=== PATIENT | male | born 1960 | race Hispanic/Latino ===

== ENCOUNTER 2021-07-14 07:43 | Day surgery (SDC) | payer MEDICARE ==
[2021-07-14 08:51] LABS: Basophils # (Auto) 0.1 K/mm3 (0.0-0.1); Basophils % (Auto) 1.1 % (0.0-1.8); Eosinophils # (Auto) 0.1 K/mm3 (0.0-0.4); Eosinophils % (Auto) 1.6 % (0.0-4.3); Hematocrit 43.5 % (35.5-45.6); Hemoglobin 14.5 gm/dl (11.8-15.2); Lymphocytes # (Auto) 1.7 K/mm3 (1.2-5.4); Mean Corpuscular HGB Conc 33 % (32-34); Mean Corpuscular Volume 87 fl (84-94); Monocytes # (Auto) 0.6 K/mm3 (0.0-0.8); Monocytes % (Auto) 7.5 % (0.0-7.3); Platelet Count 200 K/mm3 (140-440); Red Blood Count 5.03 M/mm3 (3.65-5.03); Red Cell Distribution Width 16.3 % (13.2-15.2)
[2021-07-14] MEDS ORDERED: SODIUM CHLORIDE 0.9% 500 ML 500 ML IV SCH (09:00)
[2021-07-14] MEDS ORDERED: ASPIRIN EC 325 MG TAB PO ONE (09:00)
[2021-07-14 09:03] LABS: BUN/Creatinine Ratio 19; Blood Urea Nitrogen 15 mg/dL (9-20); Calcium 9.3 mg/dL (8.4-10.2); Hemolysis Index 5
[2021-07-14 09:18] LABS: INR 0.87 (0.87-1.13)
[2021-07-14] MEDS ORDERED: HEPARIN/NS 5000 UNIT/500ML 1,000 ML IR ONE (10:26)
--- NOTE | 2021-07-14 10:26 | Electrocardiograph Report ---
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
[2021-07-14] MEDS ORDERED: NITROGLYCERIN SYRINGE 3 ML ONE (10:27)
[2021-07-14] MEDS: MIDAZOLAM 2 MG/2 ML INJ ONE ×2 (10:50→11:04)
[2021-07-14] MEDS: fentaNYL 100 MCG/2 ML INJ ONE ×2 (10:51→11:04)
[2021-07-14] MEDS: LIDOCAINE (2%) 20 MG/1 ML VIAL 20 ML MDV INFILTRATI ONE ×2 (10:52→11:06)
[2021-07-14] MEDS: HEPARIN 10,000 UNITS/10 ML VIAL ONE ×2 (10:52→11:07)
[2021-07-14] MEDS: VERAPAMIL 5 MG/2 ML INJ ONE ×2 (10:52→11:07)
[2021-07-14] MEDS ORDERED: CLOPIDOGREL 300 MG TAB ONE (11:15)
[2021-07-14] MEDS ORDERED: ALUM-MAG HYDROXIDE-SIMETHICONE 200-200-20MG/5ML ORAL LIQD 30 ML ONE (11:15)
--- NOTE | 2021-07-14 11:34 | Short Stay Summary ---
Short Stay Documentation Date of service: 07/14/21 - History H&P: obtained from office - Allergies and Medications Current Medications: Allergies No Known Allergies Allergy (Verified 07/14/21 08:15) Home Medications Medication Instructions Recorded Confirmed Last Taken Type Cyclobenzaprine [Flexeril] 10 mg PO BID PRN 07/14/21 07/14/21 06/30/21 History 1 tab Ezetimibe [Zetia] 10 mg PO DAILY 07/14/21 07/14/21 07/13/21 History 10 mg Furosemide [Lasix] 40 mg PO DAILY 07/14/21 07/14/21 07/13/21 History 40 mg Gabapentin [Neurontin] 800 mg PO QID 07/14/21 07/14/21 07/14/21 09:02 History 800 mg HYDROcodone/APAP 10-325 [[place] 1 tab PO Q6H PRN 07/14/21 07/14/21 07/14/21 02:00 History 10-325 mg TAB] 1 tab Metformin HCl [metFORMIN] 1,000 mg PO BID 07/14/21 07/14/21 07/13/21 History 1000 mg Metoprolol Succinate [Toprol Xl] 25 mg PO DAILY 07/14/21 07/14/21 07/13/21 History 25 mg lisinopriL [Lisinopril] 10 mg PO DAILY PRN 07/14/21 07/14/21 06/30/21 History 10 mg Active Medications Sodium Chloride (Nacl 0.9% 500 Ml) 500 mls @ 50 mls/hr IV DIRECT JANET Stop: 07/14/21 18:59 Last Admin: 07/14/21 10:53 Dose: 0 mls Documented by: - Physical exam HEENT: Other (Dressing clean, dry, and intact. No bleeding or hematoma) - Brief post op/procedure progress note Date of procedure: 07/14/21 Pre-op diagnosis: chest pain Anesthesia: local Estimated blood loss: minimal - Hospital course Hospital course: Patient underwent cardiac cath procedure through right radial site with no complications. Patient tolerated procedure well. Patient to be discharged home with prescription for plavix - Disposition Condition at discharge: Good Disposition: 01 HOME / SELF CARE / HOMELESS Short Stay Discharge Plan Activity: advance as tolerated Diet: low fat, low cholesterol, low salt Wound: keep clean and dry, per your surgeon's advice Follow up with: YARELIS CEE MD [Primary Care Provider] - 7 Days
--- NOTE | 2021-07-14 11:51 | Cardiac Catherization Report ---
DATE OF SERVICE: 07/14/2021 LEFT HEART CATHETERIZATION CLINICAL INFORMATION: This is a 61-year-old obese male, smoker, coronary arterial disease, PCI to RCA in 2014, had diastolic heart failure, abnormal stress test with moderate anterior wall ischemia is here for left heart catheterization. Procedure was done with moderate sedation, started at 11:04, finished at 11:20, 16 minutes of moderate sedation. DESCRIPTION OF PROCEDURE: Procedure was done via the right radial artery, sterile technique and local anesthesia. A 6-Cameroonian radial sheath inserted. Left system engaged with JL3.5 catheter. Left main is large and patent, and bifurcates into large LAD that is patent with mild luminal irregularities that you see left to left collaterals feeding a very small diagonal 1, which is 90% ostial. Circumflex and medium caliber vessel are patent. Mild luminal irregularities. OM1, OM2 are small to medium in caliber, patent, diffusely diseased, 20%. You see extensive left to right collaterals feeding into the RCA up to the mid RCA. RCA engaged with JR4 is 100% with bridging collaterals proximally. LV gram done in LITHUANIAN and CLARK view shows normal LV function, EF 55-60%, LVEDP 23 mmHg, LV is 133, aortic is 133/66. No gradient across the aortic valve on pullback. The 5-Cameroonian catheters all taken over a guidewire. A 6-Cameroonian radial sheath was discontinued. Radial band applied. No hematoma, no bleeding. SUMMARY: Left main patent, LAD patent, mild luminal irregularities. Diagonal 100%, small vessel, left to left collaterals. Circumflex, patent. OM1, OM2 diffuse, 20%, no change. RCA is 100% proximal with left to right collaterals with normal LV function. RECOMMENDATIONS: The patient will be referred to [place] for GENERAL ACCOUNTANT of RCA. Discussed in detail with the patient and the patient's family. TID: [id number] RECEIPT: [id number] [facility]/TAB
[2021-07-14] MEDS ORDERED: HYDROcodone/ACETAMINOPHEN 10-325MG TAB PO ONE (11:56)
[2021-07-14 14:42] VITALS: BP 111/58
== END 2021-07-14 15:15 | disposition home or self-care (01) ==
LOC: CATHLABREC 07:43
PROVIDERS: ATTEND Internal Medicine
DX: R94.31 Abnormal electrocardiogram [ECG] [EKG] (principal); I25.118 Atherosclerotic heart disease of native coronary artery with other forms of angina pectoris; E10.9 Type 1 diabetes mellitus without complications; I27.23 Pulmonary hypertension due to lung diseases and hypoxia; E78.00 Pure hypercholesterolemia, unspecified; M19.90 Unspecified osteoarthritis, unspecified site; F17.210 Nicotine dependence, cigarettes, uncomplicated; Z79.84 Long term (current) use of oral hypoglycemic drugs; Z79.899 Other long term (current) drug therapy; Z98.890 Other specified postprocedural states; Z72.89 Other problems related to lifestyle
CPT/HCPCS: 36415; 80048; 85025; 85610; 85730; 93005; 93458; 99156; C1894; J1644; J1815; J2250; J3010; J3490; J7040; Q9967

== ENCOUNTER 2021-11-20 06:48 | Day surgery (SDC) | payer MEDICARE ==
[2021-11-20 07:55] LABS: Hematocrit 43.4 % (35.5-45.6); Hemoglobin 14.3 gm/dl (11.8-15.2); Mean Corpuscular HGB Conc 33 % (32-34); Mean Corpuscular Volume 90 fl (84-94); Platelet Count 186 K/mm3 (140-440); Red Blood Count 4.85 M/mm3 (3.65-5.03); Red Cell Distribution Width 17.3 % (13.2-15.2)
[2021-11-20 08:05] LABS: INR 0.88 (0.87-1.13)
[2021-11-20 08:06] LABS: Partial Thromboplastin Time 27.5 Sec. (24.2-36.6)
[2021-11-20] MEDS: MIDAZOLAM 2 MG/2 ML INJ ONE ×2 (09:02→10:21)
[2021-11-20] MEDS: fentaNYL 100 MCG/2 ML INJ ONE ×3 (09:02→10:26)
[2021-11-20] MEDS: LIDOCAINE (1%) 10 MG/1 ML VIAL 20 ML MDV ONE ×3 (09:02→10:28)
[2021-11-20] MEDS: SODIUM CHLORIDE 0.9% 500 ML 500 ML IV SCH ×2 (09:03→10:20)
[2021-11-20] MEDS: HEPARIN/NS 5000 UNIT/500ML 1,000 ML IR ONE ×2 (09:03→10:37)
[2021-11-20 09:15] LABS: BUN/Creatinine Ratio 10; Blood Urea Nitrogen 10 mg/dL (9-20); Calcium 9.5 mg/dL (8.4-10.2); Hemolysis Index 31
[2021-11-20] MEDS ORDERED: HEPARIN 10,000 UNITS/10 ML VIAL ONE (09:19)
[2021-11-20] MEDS ORDERED: VERAPAMIL 5 MG/2 ML INJ ONE (09:19)
[2021-11-20] MEDS ORDERED: NITROGLYCERIN SYRINGE 3 ML ONE (09:19)
[2021-11-20] MEDS ORDERED: FUROSEMIDE 20 MG/2 ML INJ ONE (10:50)
--- NOTE | 2021-11-20 11:13 | Short Stay Summary ---
Short Stay Documentation Date of service: 11/20/21 - History H&P: obtained from office - Allergies and Medications Current Medications: Allergies clindamycin Adverse Reaction (Verified 08/25/21 11:04) Nausea Home Medications Medication Instructions Recorded Confirmed Last Taken Type Clopidogrel [Plavix] 75 mg PO QDAY #30 tablet 07/14/21 11/20/21 11/19/21 Rx Cyclobenzaprine [Flexeril] 10 mg PO BID PRN 07/14/21 11/20/21 11/19/21 History Ezetimibe [Zetia] 10 mg PO DAILY 07/14/21 11/20/21 11/19/21 History Furosemide [Lasix] 40 mg PO DAILY 07/14/21 11/20/21 11/19/21 History Gabapentin [Neurontin] 800 mg PO QID 07/14/21 11/20/21 11/19/21 History Metformin HCl [metFORMIN] 1,000 mg PO BID 07/14/21 11/20/21 11/19/21 History Metoprolol Succinate [Toprol Xl] 25 mg PO DAILY 07/14/21 11/20/21 11/19/21 History lisinopriL [Lisinopril] 10 mg PO DAILY PRN 07/14/21 11/20/21 11/19/21 History Aspirin EC [Halfprin EC] 81 mg PO QDAY 08/25/21 11/20/21 11/19/21 History Insulin Glargine,Hum.rec.anlog 50 units SUB-Q HS 08/25/21 11/20/21 11/19/21 History [Lantus Solostar] Oxycodone HCl/Acetaminophen 1 tab PO QID 08/25/21 11/20/21 11/19/21 History [Oxycodone-Acetaminophen 10-325] ProAir HFA Inhaler 2 puff PO BID 08/25/21 11/20/21 11/19/21 History Active Medications Sodium Chloride (Nacl 0.9% 500 Ml) 500 mls @ 50 mls/hr IV DIRECT JANET Stop: 11/20/21 16:00 Last Admin: 11/20/21 09:03 Dose: 0 mls - Brief post op/procedure progress note Date of procedure: 11/20/21 Pre-op diagnosis: claudication with pad Post-op diagnosis: same Anesthesia: local Estimated blood loss: minimal Pathology: none - Hospital course Hospital course: see report - Disposition Condition at discharge: Good Disposition: 01 HOME / SELF CARE / HOMELESS - Discharge Diagnoses (1) CAD (coronary artery disease) Status: Chronic Qualifiers: Coronary Disease-Associated Artery/Lesion type: [place] artery Associated angina: with stable angina (2) PAD (peripheral artery disease) Status: Chronic (3) Smoker Status: Chronic (4) Diastolic dysfunction Status: Chronic (5) Diabetes mellitus Status: Chronic Qualifiers: Diabetes mellitus type: type 2 Diabetes mellitus complication status: with circulatory complication Diabetes mellitus complication detail: with peripheral angiopathy without gangrene Short Stay Discharge Plan Diet: low fat, low cholesterol, low salt, diabetic Special Instructions: hold Metformin (for two days) Follow up with: YARELIS CEE MD [Primary Care Provider] - 7 Days
[2021-11-20] MEDS ORDERED: traMADol 50 MG TAB PO PRN (11:30)
[2021-11-20] MEDS ORDERED: HYDROcodone/ACETAMINOPHEN 5-325 MG TAB PO PRN (11:30)
[2021-11-20 14:41] VITALS: BP 105/84
--- NOTE | 2021-11-20 15:20 | Cardiac Catherization Report ---
DATE OF SERVICE: 11/20/2021 This is a peripheral angiogram done on 11/20/2021. CLINICAL INFORMATION: This is a 61-year-old smoker, diastolic dysfunction, known coronary arterial disease with PCI of RCA, has claudication symptoms with abnormal peripheral angiogram with bilateral SFAs occluded with iliac stenosis, is here for peripheral angiogram. The patient has known right radial artery occlusion. DESCRIPTION OF PROCEDURE: Procedure was done with moderate sedation, started at 10:23, finished at 10:46; 23 minutes of moderate sedation, done via the right ulnar artery, sterile technique, local anesthesia. A 6-Marshallese radial sheath inserted. Pigtail catheter was placed in distal abdominal aorta. Abdominal aortogram was done, showed diffuse disease in the abdominal aorta with bilateral renal arteries patent, bilateral common iliacs patent. Next, abdominal runoff was done, which showed bilateral common iliacs patent, right internal iliac occluded with collateralization feeding into the common femoral artery that is patent with profunda patent, proximal SFA patent mid, long occlusion fills via collaterals of distal SFA. Popliteal was patent with 2-vessel runoff of the peroneal and TP trunk and posterior tibial artery, anterior tibial 100%. Next, left internal iliac artery patent, left common femoral artery patent, left proximal SFA patent, but large profunda because left SFA mid is occluded. Reconstitution of the distal SFA with popliteal patent with 3-vessel runoff in the anterior tibial, peroneal and posterior tibial. Pigtail catheter was taken over guidewire. A 6-Marshallese radial sheath was discontinued, radial band applied. No hematoma, no bleeding. SUMMARY: 1. Distal abdominal aorta, mild diffuse disease. Bilateral renal arteries patent. 2. Bilateral common iliacs patent. 3. Right internal iliac 100% occluded. Right common femoral artery appears to be patent. Right profunda patent, right SFA proximal patent, but mid 100% with collateralization from profunda filling into the distal SFA with right popliteal patent with 2-vessel runoff with the posterior tibial and peroneal. 4. Left common iliac patent, left internal iliac patent, left common femoral artery patent, left profunda patent. Left SFA proximal patent, but mid long occlusion, reconstitutes by the profunda collaterals into the distal SFA with popliteal patent with 3-vessel runoff. The patient will be referred to Vascular Surgery for SALES AND OPERATIONS TRAINEE of the right internal iliac artery with possible endarterectomy of the right common femoral artery. RECOMMENDATIONS: The patient will continue dual antiplatelet therapy. Smoking cessation discussed in detail with the patient and the patient's family. TID: [id number] RECEIPT: [id number] [facility]/VIS
== END 2021-11-20 06:49 | disposition home or self-care (01) ==
LOC: CATHLABREC 06:48
PROVIDERS: ATTEND Internal Medicine
DX: I70.213 Atherosclerosis of native arteries of extremities with intermittent claudication, bilateral legs (principal); E78.2 Mixed hyperlipidemia; I10 Essential (primary) hypertension; I27.23 Pulmonary hypertension due to lung diseases and hypoxia; F17.210 Nicotine dependence, cigarettes, uncomplicated; G62.9 Polyneuropathy, unspecified; I25.118 Atherosclerotic heart disease of native coronary artery with other forms of angina pectoris; M19.90 Unspecified osteoarthritis, unspecified site; Z83.3 Family history of diabetes mellitus; Z88.8 Allergy status to other drugs, medicaments and biological substances; Z79.82 Long term (current) use of aspirin; Z79.4 Long term (current) use of insulin; Z79.899 Other long term (current) drug therapy; Z87.442 Personal history of urinary calculi; Z98.890 Other specified postprocedural states; Z82.49 Family history of ischemic heart disease and other diseases of the circulatory system; Z86.73 Personal history of transient ischemic attack (TIA), and cerebral infarction without residual deficits
CPT/HCPCS: 36200; 36415; 75630; 80048; 85027; 85610; 85730; 99156; 99157; J1644; J1815; J1940; J2250; J3010; J7040; Q9967

== ENCOUNTER 2022-01-05 08:58 | Day surgery (SDC) | payer MEDICARE ==
[2022-01-05 09:55] LABS: Hemoglobin 14.2 gm/dl (11.8-15.2); Mean Corpuscular HGB Conc 34 % (32-34); Mean Corpuscular Volume 88 fl (84-94); Platelet Count 210 K/mm3 (140-440); Red Blood Count 4.79 M/mm3 (3.65-5.03)
[2022-01-05] MEDS ORDERED: SODIUM CHLORIDE 0.9% 500 ML 500 ML IV SCH (10:00)
[2022-01-05 10:08] LABS: INR 0.91 (0.87-1.13)
[2022-01-05 10:09] LABS: Partial Thromboplastin Time 29.7 Sec. (24.2-36.6)
[2022-01-05 10:13] LABS: BUN/Creatinine Ratio 11; Blood Urea Nitrogen 9 mg/dL (9-20); Calcium 9.2 mg/dL (8.4-10.2); Hemolysis Index 3
--- NOTE | 2022-01-05 11:01 | Short Stay Summary ---
Short Stay Documentation Date of service: 01/05/22 Narrative H&P: The patient is a 61-year-old male with a history of tobacco abuse who presents with complaints of severe short distance right lower extremity claudication. He had a diagnostic angiogram performed by his knurling machine tender that demonstrated occlusion of his right external iliac artery with reconstitution in the right common femoral artery. He is in need of intervention and I discussed with him an attempt at endovascular intervention would be the best first option. He was given the risk, benefits, and alternative procedures and consented to the procedure. - History Past Medical History: arthritis, CAD, cancer, diabetes, heart failure, hypertension, hyperlipidemia, PVD, stroke Social history: , smoking - Allergies and Medications Current Medications: Allergies latex Allergy (Verified 01/05/22 09:31) Shortness of Breath PT STATES "HIVES, SOB, SWELLING" clindamycin Adverse Reaction (Verified 08/25/21 11:04) Nausea Home Medications Medication Instructions Recorded Confirmed Last Taken Type Clopidogrel [Plavix] 75 mg PO QDAY #30 tablet 07/14/21 01/05/22 01/04/22 Rx Cyclobenzaprine [Flexeril 10 MG 10 mg PO BID PRN 07/14/21 01/05/22 11/19/21 History TAB] Ezetimibe [Zetia] 10 mg PO DAILY 07/14/21 01/05/22 11/19/21 History Furosemide [Lasix] 40 mg PO DAILY 07/14/21 01/05/22 01/04/22 History Gabapentin [Neurontin] 800 mg PO QID 07/14/21 01/05/22 01/04/22 History Metformin HCl [metFORMIN] 1,000 mg PO BID 07/14/21 01/05/22 01/03/22 History Metoprolol Succinate [Toprol Xl] 25 mg PO DAILY 07/14/21 01/05/22 01/04/22 History lisinopriL [Lisinopril] 10 mg PO DAILY PRN 07/14/21 01/05/22 01/04/22 History Aspirin EC [Halfprin EC] 81 mg PO QDAY 08/25/21 01/05/22 01/04/22 History Insulin Glargine,Hum.rec.anlog 50 units SUB-Q HS 08/25/21 01/05/22 01/04/22 History [Lantus Solostar] Oxycodone HCl/Acetaminophen 1 tab PO QID 08/25/21 01/05/22 01/04/22 History [Oxycodone-Acetaminophen 10-325] ProAir HFA Inhaler 2 puff PO BID 08/25/21 01/05/22 01/05/22 History Active Medications Sodium Chloride (Nacl 0.9% 500 Ml) 500 mls @ 50 mls/hr IV DIRECT JANET - Physical exam General appearance: no acute distress Lungs: Normal air movement Heart: Regular rate Gastrointestinal: normal Male Genitourinary: deferred Extremities: no ischemia, abnormal (nonpalpable right femoral or pedal pulses, palpable left femoral pulse) - Brief post op/procedure progress note Date of procedure: 01/05/22 Pre-op diagnosis: Peripheral Vascular Disease Post-op diagnosis: same Procedure: 1. Ultrasound Guided Access Left Common Femoral Artery 2. Angioplasty and Stent of Right External Iliac Artery with 8 x 10 Viabahn Stent Graft and 8 x 40 Conquest Balloon 3. Angioplasty of Right Common Femoral Artery with 7.0 x 80 IN.PACT Drug-Coated Balloon 4. Radiologic Supervision with Interpretation 5. Monitored Moderate Sedation Anesthesia: local, other (Monitored Moderate Sedation) Surgeon: ANI SUMMERS Estimated blood loss: minimal Pathology: none Condition: stable - Disposition Condition at discharge: Good Disposition: 01 HOME / SELF CARE / HOMELESS Short Stay Discharge Plan Activity: other (No strenuous activity for 24 hours) Wound: remove dressing (in 48 hours) Follow up with: ANI SUMMERS MD [Staff Physician] - 14 Days
[2022-01-05] MEDS ORDERED: LIDOCAINE (2%) 20 MG/1 ML VIAL 50 ML MDV INFILTRATI ONE (11:53)
[2022-01-05] MEDS ORDERED: HEPARIN/NS 5000 UNIT/500ML 1,000 ML IR ONE (11:53)
[2022-01-05] MEDS ORDERED: HEPARIN 10,000 UNITS/10 ML VIAL ONE (11:53)
[2022-01-05] MEDS: MIDAZOLAM 2 MG/2 ML INJ ONE ×2 (12:14→12:33)
[2022-01-05] MEDS: fentaNYL 100 MCG/2 ML INJ ONE ×2 (12:14→12:33)
[2022-01-05] MEDS ORDERED: oxyCODONE /ACETAMINOPHEN 5-325MG TAB PO PRN (13:26)
--- NOTE | 2022-01-05 13:26 | Operative Report ---
Operative Report Operative Report: Date of Procedure: 01/05/2022 Pre-operative Diagnosis: Peripheral Vascular Disease with Short Distance Claudication Post-operative Diagnosis: Same Procedure(s): 1. Ultrasound Guided Access Left Common Femoral Artery 2. Angioplasty and Stent of Right External Iliac Artery with 8 x 10 Viabahn Stent Graft and 8 x 40 Conquest Balloon 3. Angioplasty of Right Common Femoral Artery with 7.0 x 80 IN.PACT Drug-Coated Balloon 4. Radiologic Supervision with Interpretation 5. Monitored Moderate Sedation (Total Anesthesia Time: 38 Minutes) Surgeon: Fortino Cruz M.D. Medicine And Health Service Manager: None Anesthesia: Monitored Moderate Sedation Total Anesthesia Time: 38 Minutes EBL: Minimal Counts: Correct Complications: None Condition: Stable Specimen: None Indication: The patient is a 61-year-old male with a history of peripheral vascular disease who has pain in his right leg as well as a poorly healing wound on his right calf. He had a diagnostic angiogram performed by his legal aid that demonstrated an occlusion of his external iliac artery with reconstitution in his right common femoral artery. He is in need of intervention to help heal his wounds. He was given the risk, benefits, and alternative procedures and consented to the procedure. Angiographic Findings: The right common iliac artery was patent without evidence of significant flow- limiting stenosis. The hypogastric artery was patent without significant flow- limiting stenosis. The external iliac artery was occluded and there was r econstitution of flow in the common femoral artery. There was approximately 50% stenosis in the common femoral artery with 40 to 50% stenosis in the proximal SFA. The profunda artery was patent without significant flow-limiting stenosis. After intervention the external iliac artery was patent with less than 10% residual stenosis. The common femoral artery was patent with less than 10% residual stenosis. The proximal SFA was patent with less than 15% residual stenosis. Description of Procedure: The patient was brought to the [facility] and laid in supine position. After a timeout was performed his left groin was prepped and draped in normal sterile fashion. Ultrasound was used to identify the left common femoral artery and confirm patency. Once patency was confirmed overlying skin and soft tissue was anesthetized with lidocaine. An 11 blade was used to make small stab incision and then a curved hemostat was used to bluntly dissect down to the anterior surface of the left common femoral artery under ultrasound guidance. A 21-gauge micropuncture needle was used with ultrasound guidance into the left common femoral artery and a 0.018 micropuncture wire was advanced to the artery. The needle was removed and a micropuncture sheath was placed by Seldinger technique. The dilator and wire were removed and a 0.035 Bentson wire was advanced into the artery. The micropuncture sheath was exchanged for 5 Spanish sheath by Seldinger technique. An Omni Flush catheter then was advanced into the aorta and an angiogram was performed with the previously described findings. The Omni Flush catheter and Bentson wire were advanced up and over the bifurcation and the catheter and wire were advanced into the hypogastric artery. The Omni Flush catheter was then removed and the 5 Spanish sheath was exchanged for a 7 Spanish 45 cm destination sheath by Seldinger technique. At this point the patient was systemically heparinized with 5000 units of heparin IV. I then advanced a Na vicross catheter over the wire and used the Navicross catheter with a 0.018 Gladius wire and was able to traverse the occluded external iliac artery and advanced the catheter wire into the SFA which was confirmed with angiogram. I advanced the wire into the distal SFA and predilated the occluded external iliac artery using a 5 x 100 Filipe balloon. I then advanced a 8 x 10 cm Viabahn stent graft into the external iliac artery and deployed it. After Buzz mcclure I advanced the Navicross catheter into the SFA and exchanged the wire for an advantage wire and then postdilated the stent graft with an 8 x 40 conquest balloon which resulted in less than 10% residual stenosis in the external iliac artery. I then used a 7.0 x 80 IN.PACT Drug-Coated Balloon to perform angioplasty of the common femoral artery which resulted in less than 10% residual stenosis as well as angioplasty of the SFA resulting in less than 15% residual stenosis. At this point "the sheath back into the left external iliac artery and advanced the wire into the aorta. I remove the sheath and used a ProStyle Perclose Closure Device to close the left femoral arteriotomy. A pressure dressing was then applied to the left groin entry site and the patient was transported to the recovery area in stable condition.
[2022-01-05 14:47] VITALS: BP 125/56
== END 2022-01-05 15:13 | disposition home or self-care (01) ==
LOC: CATHLABREC 08:58
PROVIDERS: ATTEND Surgery Vascular Surgery
DX: I70.211 Atherosclerosis of native arteries of extremities with intermittent claudication, right leg (principal); E11.51 Type 2 diabetes mellitus with diabetic peripheral angiopathy without gangrene; F17.210 Nicotine dependence, cigarettes, uncomplicated; I25.10 Atherosclerotic heart disease of native coronary artery without angina pectoris; I25.118 Atherosclerotic heart disease of native coronary artery with other forms of angina pectoris; I10 Essential (primary) hypertension; E78.5 Hyperlipidemia, unspecified; M19.90 Unspecified osteoarthritis, unspecified site; Z85.828 Personal history of other malignant neoplasm of skin; Z91.041 Radiographic dye allergy status; Z88.8 Allergy status to other drugs, medicaments and biological substances; Z79.899 Other long term (current) drug therapy; Z79.4 Long term (current) use of insulin; Z98.49 Cataract extraction status, unspecified eye; Z95.5 Presence of coronary angioplasty implant and graft; Z87.442 Personal history of urinary calculi; Z98.890 Other specified postprocedural states; Z83.3 Family history of diabetes mellitus; Z82.49 Family history of ischemic heart disease and other diseases of the circulatory system; Z86.73 Personal history of transient ischemic attack (TIA), and cerebral infarction without residual deficits
CPT/HCPCS: 36415; 37221; 37224; 76937; 80048; 85027; 85610; 85730; 99156; 99157; C1725; C1751; C1760; C1769; C1874; C1887; C2623; J1644; J2250; J3010; J3490; Q9967